=== PATIENT | female | born 1940 | race Caucasian/White ===

== ENCOUNTER 2020-10-08 05:27 | Day surgery (SDC) | payer MEDICARE ==
[2020-10-08] MEDS ORDERED: LACTATED RINGERS 1,000 ML ONE (06:40)
[2020-10-08] MEDS ORDERED: PROPOFOL 200 MG/20 ML VIAL IV ONE (07:00)
[2020-10-08] MEDS ORDERED: LIDOCAINE 1% 10 ML VIAL INJ ONE (07:00)
[2020-10-08] MEDS ORDERED: fentaNYL CITRATE INJ 50 MCG/ML 2 ML AMP ONE (09:35)
--- NOTE | 2020-10-08 10:16 | OP ---
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 She has now been on proton pump inhibitor and here for followup exam. She says she is feeling well. Her eating is going "okay," not as bad as it has been, but not perfectly since her surgery. PROCEDURE: 1. EGD. SURGEON: Dominick Bergeron MD PROCEDURE: General anesthesia was induced in the lateral position. With bite block in place, the scope was inserted. I noticed a little bit of bile in the posterior pharynx as we entered the esophagus. There was a small trace of bile there. The esophagus appeared normal. We entered the stomach. There was a large bolus of partially digested food and bile. It was unable to be completely aspirated. We found the duodenum after slight positioning and there was irritation and slight oozing around it. I was able to get through the pylorus this time. The duodenum appeared normal. On the last examination, I could not get through the pylorus. This may have improved. Overall, there is no severe stricture, but she is not emptying well. We will get a dietary consult and director of counseling her on changing her diet for more passable foods. I do not know the procedure she had previously. 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 We will continue to monitor her. If the stricture should become critical, she may need a bypass. #[id number] [facility]
[2020-10-08] MEDS ORDERED: ALUM & MAG HYDROX-SIMETHICONE 30 ML UD ONE (10:22)
[2020-10-08] MEDS ORDERED: ALUM & MAG HYDROX-SIMETHICONE 30 ML UD PO ONE (10:25)
[2020-10-08 12:15] VITALS: BP 233/79; TEMP 97.6; O2SAT 95
== END 2020-10-08 10:40 | disposition home or self-care (01) ==
LOC: AMB 05:27
PROVIDERS: ATTEND Surgery
DX: K29.50 Unspecified chronic gastritis without bleeding (principal); I10 Essential (primary) hypertension; D64.9 Anemia, unspecified; M19.90 Unspecified osteoarthritis, unspecified site; E78.00 Pure hypercholesterolemia, unspecified; K21.9 Gastro-esophageal reflux disease without esophagitis; Z90.3 Acquired absence of stomach [part of]; Z90.710 Acquired absence of both cervix and uterus; Z79.82 Long term (current) use of aspirin; Z79.899 Other long term (current) drug therapy
CPT/HCPCS: 00731; 43235; J3010; J3490; J7120